=== PATIENT | female | born 1990 | race American Indian/Alaskan Native ===

== ENCOUNTER 2016-05-29 21:11 | Emergency (ER) | payer MEDICAID ==
[2016-05-29 21:31] VITALS: BP 137/87
== END 2016-05-30 04:21 | disposition left against medical advice (07) ==
LOC: ED 21:11
DX: M79.609 Pain in unspecified limb (principal); Z53.21 Procedure and treatment not carried out due to patient leaving prior to being seen by health care provider

== ENCOUNTER 2017-03-06 19:43 | Emergency (ER) | payer MEDICAID ==
[2017-03-06 20:51] LABS: Hematocrit 38.8 % (30.3-42.9); Hemoglobin 13.7 gm/dl (10.1-14.3); Mean Corpuscular HGB Conc 35 % (30-34); Mean Corpuscular Hemoglobin 29 pg (28-32); Mean Corpuscular Volume 81 fl (79-97); Platelet Count 258 K/mm3 (140-440); Red Blood Count 4.81 M/mm3 (3.65-5.03); Red Cell Distribution Width 16.5 % (13.2-15.2); White Blood Count 9.9 K/mm3 (4.5-11.0)
[2017-03-06 21:11] LABS: Anion Gap 17 mmol/L; BUN/Creatinine Ratio 13; Blood Urea Nitrogen 12 mg/dL (7-17); Carbon Dioxide 28 mmol/L (22-30); Chloride 101.7 mmol/L (98-107); Glucose 89 mg/dL (65-100); Potassium 4.3 mmol/L (3.6-5.0); Sodium 142 mmol/L (137-145)
[2017-03-06 23:02] LABS: Bacteria,Urine 1+ /HPF (Negative); Bilirubin,Urine NEG (Negative); Blood,Urine SM (Negative); Ketones,Urine NEG (Negative); Leukocyte Esterase,Urine SM (Negative); Nitrite,Urine NEG (Negative); Protein,Urine <15 mg/dL mg/dL (Negative); Urobilinogen,Urine < 2.0 mg/dL (<2.0)
[2017-03-07] MEDS ORDERED: MOTRIN PO ONE (00:24)
[2017-03-07] MEDS ORDERED: NORVASC PO ONE (00:24)
--- NOTE | 2017-03-07 01:19 | Emergency Department Report ---
ED General Adult HPI - General Chief complaint: High BP Stated complaint: HIGH BLOOD PRESSURE,LEFT FINGER,HAND PAIN Time Seen by Provider: 03/07/17 00:06 Source: patient Mode of arrival: Ambulatory Limitations: No Limitations - History of Present Illness Initial comments: 26-year-old female presents to the ER with complaints of elevated blood pressure and tingling and numbness to her distal left forearm. Patient had a baby in December and states just prior to her delivery her blood pressure was elevated. She denies having a diagnosis of preeclampsia. She was never placed on hypertensive medication and states she monitors her blood pressure intermittently and it has remained high since her delivery. Patient has not followed up with the primary care doctor. Patient complains of intermittent frontal throbbing headaches rated 8/10 in intensity thay have persisted even prior to her diagnosis of hypertension. She denies nausea, vomiting, chest pain , or shortness of breath. Today patient had some numbness and tingling to her distal left forearm extending to her hands that has since resolved. No weakness or paralysis reported. Patient is asymptomatic at this time but she states she feels nervous since her mother worried her about developing renal failure requiring dialysis like her and possibly having diabetes. Severity scale (0 -10): 8 - Related Data Home Medications Medication Instructions Recorded Confirmed Last Taken Valacyclovir HCl [Valtrex] 1,000 mg PO BID 02/15/16 02/15/16 Unknown traMADol [Ultram] 0 mg PO Q6HR PRN 02/15/16 Unknown Previous Rx's Medication Instructions Recorded Last Taken Type Ibuprofen [Motrin] 600 mg PO Q8H PRN #30 tablet 03/07/17 Unknown Rx amLODIPine [Norvasc] 5 mg PO DAILY #30 tab 03/07/17 Unknown Rx traMADol [Ultram 50 MG tab] 50 mg PO Q6HR PRN #20 tablet 03/07/17 Unknown Rx Allergies Allergy/AdvReac Type Severity Reaction Status Date / Time No Known Allergies Allergy Verified 02/15/16 16:52 ED Review of Systems ROS: Stated complaint: HIGH BLOOD PRESSURE,LEFT FINGER,HAND PAIN Other details as noted in HPI Comment: All other systems reviewed and negative Other: Constitutional: No fevers chills Eyes: No eye pain visual changes ENT: No ear pain or throat pain Neck: Denies pain Respiratory: Denies cough wheezing shortness of breath Cardiovascular: Denies chest pain, palpitations, syncope GI: Denies abdominal pain, nausea, vomiting, diarrhea : Denies dysuria, urinary frequency, or urgency Musculoskeletal: Denies back pain Skin: Denies rash, lesions, erythema Neurologic: as per hpi Psychiatric: Denies suicidal ideation, hallucinations ED Past Medical Hx - Past Medical History Additional medical history: Herpes, preeclampsia - Surgical History Past Surgical History?: No - Social History Smoking Status: Never Smoker Substance Use Type: None - Medications Home Medications: Home Medications Medication Instructions Recorded Confirmed Last Taken Type Valacyclovir HCl [Valtrex] 1,000 mg PO BID 02/15/16 02/15/16 Unknown History traMADol [Ultram] 0 mg PO Q6HR PRN 02/15/16 Unknown History Ibuprofen [Motrin] 600 mg PO Q8H PRN #30 tablet 03/07/17 Unknown Rx amLODIPine [Norvasc] 5 mg PO DAILY #30 tab 03/07/17 Unknown Rx traMADol [Ultram 50 MG tab] 50 mg PO Q6HR PRN #20 tablet 03/07/17 Unknown Rx ED Physical Exam - General Limitations: No Limitations - Other Other exam information: General: No limitations, patient is alert in no acute distress Head exam: Atraumatic, normocephalic Eyes exam: Normal appearance, pupils equal reactive to light, extraocular movements intact, peripheral dean grossly intact ENT: Moist mucous membrane, normal oropharynx Neck exam: Normal inspection, full range of motion, no meningismus nontender Respiratory exam: Clear to auscultation bilateral, no wheezes, rales, crackles Cardiovascular: Normal rate and rhythm, normal heart sounds Abdomen: Soft, nondistended, and nontender, with normal bowel sounds, no rebound, or guarding Extremity: Full range of motion normal inspection no deformity Back: Normal Inspection, full range of motion, no tenderness Neurologic: Alert, oriented x3, cranial nerves intact, no motor or sensory deficit, finger-nose function intact, equal sensation and pinprick bilateral upper extremities Psychiatric: normal affect, normal mood Skin: Warm, dry, intact ED Course Vital Signs 03/06/17 03/06/17 03/07/17 19:59 20:14 00:15 Temperature 98.1 F 98.1 F Pulse Rate 82 78 96 H Respiratory 18 18 13 Rate Blood Pressure 166/103 166/103 153/103 O2 Sat by Pulse 99 99 Oximetry 03/07/17 03/07/17 03/07/17 00:18 00:30 00:45 Temperature Pulse Rate 84 84 Respiratory 13 19 15 Rate Blood Pressure 143/95 143/95 O2 Sat by Pulse 100 100 100 Oximetry 03/07/17 03/07/17 01:00 01:05 Temperature Pulse Rate 81 98 H Respiratory 14 Rate Blood Pressure 142/85 149/100 O2 Sat by Pulse 99 Oximetry - Reevaluation(s) Reevaluation #1: 03/07/17 01:19 Patient provided Norvasc 5 mg per hypertension and motion for headache ED Medical Decision Making - Lab Data Result diagrams: 03/06/17 20:40 03/06/17 20:40 Lab Results 03/06/17 03/06/17 03/06/17 Range/Units 20:40 20:40 22:36 WBC 9.9 (4.5-11.0) K/mm3 RBC 4.81 (3.65-5.03) M/mm3 Hgb 13.7 (10.1-14.3) gm/dl Hct 38.8 (30.3-42.9) % MCV 81 (79-97) fl MCH 29 (28-32) pg MCHC 35 H (30-34) % RDW 16.5 H (13.2-15.2) % Plt Count 258 (140-440) K/mm3 Sodium 142 (137-145) mmol/L Potassium 4.3 (3.6-5.0) mmol/L Chloride 101.7 (98-107) mmol/L Carbon Dioxide 28 (22-30) mmol/L Anion Gap 17 mmol/L BUN 12 (7-17) mg/dL Creatinine 0.9 (0.7-1.2) mg/dL Estimated GFR > 60 ml/min BUN/Creatinine Ratio 13 % Glucose 89 (65-100) mg/dL Calcium 9.0 (8.4-10.2) mg/dL Urine Color Yellow (Yellow) Urine Turbidity Clear (Clear) Urine pH 7.0 (5.0-7.0) Ur Specific [place] 1.012 (1.003-1.030) Urine Protein <15 mg/dl (Negative) mg/dL Urine Glucose (UA) Neg (Negative) mg/dL Urine Ketones Neg (Negative) mg/dL Urine Blood Sm (Negative) Urine Nitrite Neg (Negative) Urine Bilirubin Neg (Negative) Urine Urobilinogen < 2.0 (<2.0) mg/dL Ur Leukocyte Esterase Sm (Negative) Urine WBC (Auto) 1.0 (0.0-6.0) /HPF Urine RBC (Auto) 2.0 (0.0-6.0) /HPF U Epithel Cells (Auto) 2.0 (0-13.0) /HPF Urine Bacteria (Auto) 1+ (Negative) /HPF Hyaline Casts 1 /LPF Urine HCG, Qual (Negative) 03/07/17 Range/Units 00:06 WBC (4.5-11.0) K/mm3 RBC (3.65-5.03) M/mm3 Hgb (10.1-14.3) gm/dl Hct (30.3-42.9) % MCV (79-97) fl MCH (28-32) pg MCHC (30-34) % RDW (13.2-15.2) % Plt Count (140-440) K/mm3 Sodium (137-145) mmol/L Potassium (3.6-5.0) mmol/L Chloride (98-107) mmol/L Carbon Dioxide (22-30) mmol/L Anion Gap mmol/L BUN (7-17) mg/dL Creatinine (0.7-1.2) mg/dL Estimated GFR ml/min BUN/Creatinine Ratio % Glucose (65-100) mg/dL Calcium (8.4-10.2) mg/dL Urine Color (Yellow) Urine Turbidity (Clear) Urine pH (5.0-7.0) Ur Specific [place] (1.003-1.030) Urine Protein (Negative) mg/dL Urine Glucose (UA) (Negative) mg/dL Urine Ketones (Negative) mg/dL Urine Blood (Negative) Urine Nitrite (Negative) Urine Bilirubin (Negative) Urine Urobilinogen (<2.0) mg/dL Ur Leukocyte Esterase (Negative) Urine WBC (Auto) (0.0-6.0) /HPF Urine RBC (Auto) (0.0-6.0) /HPF U Epithel Cells (Auto) (0-13.0) /HPF Urine Bacteria (Auto) (Negative) /HPF Hyaline Casts /LPF Urine HCG, Qual Negative (Negative) - Medical Decision Making Patient provided Norvasc and Motrin. No gross neuro deficits in the ED Patient encouraged to follow primary care doctor for further management of ongoing hypertension. - Differential Diagnosis anxiety, hypertensive emergency/urgency, CVA, paresthesias Critical Care Time: No Critical care attestation.: If time is entered above; I have spent that time in minutes in the direct care of this critically ill patient, excluding procedure time. ED Disposition Clinical Impression: HTN (hypertension), Chronic headache Disposition: TO HOME OR SELFCARE Is pt being admited?: No Does the pt Need Aspirin: No Condition: Stable Instructions: Hypertension (ED) Additional Instructions: Take the medication as prescribed. Make sure you follow-up with a primary care doctor for further management of your blood pressure. Prescriptions: amLODIPine [Norvasc] 5 mg PO DAILY #30 tab Ibuprofen [Motrin] 600 mg PO Q8H PRN #30 tablet PRN Reason: Pain traMADol [Ultram 50 MG tab] 50 mg PO Q6HR PRN #20 tablet PRN Reason: Pain Referrals: HILARY ELLIS MD [Primary Care Provider] - 3-5 Days VINOD REAL JR, MD [Staff Physician] - 3-5 Days [facility] [Provider Group] - 3-5 Days Time of Disposition: 01:25
[2017-03-07 01:46] VITALS: BP 139/93
== END 2017-03-07 01:48 | disposition home or self-care (01) ==
LOC: ED 19:43
DX: I10 Essential (primary) hypertension (principal); R51 Headache; G89.29 Other chronic pain
CPT/HCPCS: 36415; 80048; 81001; 81025; 85027

== ENCOUNTER 2017-08-24 11:26 | Emergency (ER) | payer MEDICAID, OTHER ==
[2017-08-24] MEDS ORDERED: TYLENOL PO ONE (13:56)
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
[2017-08-24 14:46] LABS: HCG Qualitative,Urine Negative (Negative)
--- NOTE | 2017-08-24 16:40 | Cat Scan Report ---
FINAL REPORT PROCEDURE: CT head without contrast. TECHNIQUE: Computerized tomography of the head was performed without contrast material. HISTORY: Headache. COMPARISON: No prior studies are available for comparison. FINDINGS: The ventricles are normal in size. The olvera matter and white matter appear normal. There are no mass lesions. There is no intracranial hemorrhage. The calvarium appears intact. The mastoid air cells and visualized paranasal sinuses are clear. IMPRESSION: Normal study.
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
[2017-08-24 16:49] VITALS: BP 138/91
== END 2017-08-24 17:03 | disposition home or self-care (01) ==
LOC: ED 11:26
DX: S00.81XA Abrasion of other part of head, initial encounter (principal); I10 Essential (primary) hypertension; V89.2XXA Person injured in unspecified motor-vehicle accident, traffic, initial encounter; Y93.89 Activity, other specified; Y92.89 Other specified places as the place of occurrence of the external cause; Y99.8 Other external cause status
CPT/HCPCS: 70450; 72125; 81025; 99284

== ENCOUNTER 2020-04-30 18:23 | Emergency (ER) | payer SELFPAY ==
[2020-04-30 18:45] VITALS: BP 149/99
--- NOTE | 2020-04-30 18:54 | Emergency Department Report ---
Burn HPI - History Stated Complaint: CHEMICAL BURN/LFT HAND Chief Complaint: Burn/Smoke Inhalation Time Seen by Provider: 04/30/20 18:44 Symptoms:: Yes Able to Tolerate Fluids, No Blistering, No Malaise, No Myalgias, No Fever, No Vomiting Other History: This is a 29-year-old female presents the emergency department chief complaint of a possible burn to the left hand. 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 She states there was some [id number] initially but this has resolved. She to ok a picture initially on the whole palmar side of her finger was initially white but now is only in the flexor surfaces. She denies any ingestion or inhalation. - Home Meds and Allergies Home Medications: Home Medications Medication Instructions Recorded Confirmed Last Taken Valacyclovir HCl [Valtrex] 1,000 mg PO BID 02/15/16 02/15/16 Unknown traMADoL [Ultram] 0 mg PO Q6HR PRN 02/15/16 Unknown Previous Rx's Medication Instructions Recorded Last Taken Type Ibuprofen [Motrin] 600 mg PO Q8H PRN #30 tablet 03/07/17 Unknown Rx amLODIPine [Norvasc] 5 mg PO DAILY #30 tab 03/07/17 Unknown Rx traMADoL [Ultram 50 MG tab] 50 mg PO Q6HR PRN #20 tablet 03/07/17 Unknown Rx Cyclobenzaprine [Flexeril] 10 mg PO QHS PRN #7 tablet 08/24/17 Unknown Rx Ibuprofen [Motrin] 600 mg PO Q8H PRN #30 tablet 08/24/17 Unknown Rx Allergies/Adverse Reactions: Allergies Allergy/AdvReac Type Severity Reaction Status Date / Time No Known Allergies Allergy Verified 04/30/20 18:42 ED Review of Systems ROS: Stated complaint: CHEMICAL BURN/LFT HAND Other details as noted in HPI Comment: All other systems reviewed and negative Constitutional: denies: chills, fever Eyes: denies: eye pain, eye discharge, vision change ENT: denies: ear pain, throat pain Respiratory: denies: cough, shortness of breath, wheezing Cardiovascular: denies: chest pain, palpitations Endocrine: no symptoms reported Gastrointestinal: denies: abdominal pain, nausea, diarrhea Genitourinary: denies: urgency, dysuria, discharge Musculoskeletal: denies: back pain, joint swelling, arthralgia Skin: as per HPI, change in color. denies: rash, lesions Neurological: denies: headache, weakness, paresthesias Psychiatric: denies: anxiety, depression Hematological/Lymphatic: denies: easy bleeding, easy bruising ED Past Medical Hx - Past Medical History Hx Hypertension: Yes Additional medical history: Herpes. preeclampsia - Social History Smoking Status: Never Smoker Substance Use Type: None - Medications Home Medications: Home Medications Medication Instructions Recorded Confirmed Last Taken Type Valacyclovir HCl [Valtrex] 1,000 mg PO BID 02/15/16 02/15/16 Unknown History traMADoL [Ultram] 0 mg PO Q6HR PRN 02/15/16 Unknown History Ibuprofen [Motrin] 600 mg PO Q8H PRN #30 tablet 03/07/17 Unknown Rx amLODIPine [Norvasc] 5 mg PO DAILY #30 tab 03/07/17 Unknown Rx traMADoL [Ultram 50 MG tab] 50 mg PO Q6HR PRN #20 tablet 03/07/17 Unknown Rx Cyclobenzaprine [Flexeril] 10 mg PO QHS PRN #7 tablet 08/24/17 Unknown Rx Ibuprofen [Motrin] 600 mg PO Q8H PRN #30 tablet 08/24/17 Unknown Rx Exam - Exam General: Vital signs noted. No distress. Alert and acting appropriately. HEENT: Yes Moist Mucous Membranes, No Conjuctival Injection, No Corneal Edema Exam: Yes Normal Heart Sounds, No Respiratory Distress, No Sensory Deficits, No Musculoskeletal Pain Exam: There is mild white chalky appearance to the flexor surface of the DIP and PIP joint of the index finger on the left hand. There is no erythema, edema, normal distal sensation capillary refill. ED Course Vital Signs 04/30/20 18:40 Temperature 98.0 F Pulse Rate 94 H Respiratory 19 Rate Blood Pressure 149/99 O2 Sat by Pulse 96 Oximetry - Reevaluation(s) Reevaluation #1: 04/30/20 18:52 04/30/20 18:53 ED Medical Decision Making - Medical Decision Making I called poison control and spoke with Marcelo who stated that the solution had parasitic acid and a high concentration of hydrogen peroxide. The patient treatment would include cleaning the area with soap and water and standard burn care. The patient symptoms are significantly improving. She showed me a picture from the initial whiteness of her skin that was almost the entire palmar surface and now is only a small area. Recommend that she continue to keep the area clean and dry and follow-up with a primary care doctor. She is agreeable with plan. She verbalized understand the diagnosis, treatment and follow-up instructions. - Differential Diagnosis Chemical burn, contact dermatitis, abrasion Critical care attestation.: If time is entered above; I have spent that time in minutes in the direct care of this critically ill patient, excluding procedure time. ED Disposition Clinical Impression: Chemical burn Disposition: Z- MED SCREENING EXAM-LEFT Is pt being admited?: No Condition: Stable Instructions: Burn Care, Adult, [id number] Referrals: [facility] [Provider Group] - 3-5 Days Time of Disposition: 18:54
== END 2020-04-30 18:59 | disposition left against medical advice (07) ==
LOC: ED 18:23
DX: T23.402A Corrosion of unspecified degree of left hand, unspecified site, initial encounter (principal); Z53.21 Procedure and treatment not carried out due to patient leaving prior to being seen by health care provider; T65.91XA Toxic effect of unspecified substance, accidental (unintentional), initial encounter; Y92.89 Other specified places as the place of occurrence of the external cause

== ENCOUNTER 2020-08-22 10:03 | Emergency (ER) | payer SELFPAY ==
[2020-08-22 10:54] VITALS: BP 148/103
--- NOTE | 2020-08-22 11:02 | Emergency Department Report ---
ED General Adult HPI - General Chief complaint: Extremity Problem,Nontraumatic Stated complaint: THOMAS FEET NUMB/MUSCLE SORENESS/PASS OUT Time Seen by Provider: 08/22/20 10:50 Source: patient Mode of arrival: Ambulatory Limitations: No Limitations - History of Present Illness Initial comments: 29-year-old -[place] female patient presents with complaints of bilateral foot numbness and tingling x2 weeks. She has history of hypertension and states compliance with her medication. She denies any history of diabetes, urinary symptoms, back pain, leg pain/numbness/swelling/weakness, or injury to her feet. Patient states the tingling and numbness mainly occurs upon waking in the morning. She admits to daily heavy alcohol intake. Patient states she has not seen her PCP regarding her symptoms. - Related Data Home Medications Medication Instructions Recorded Confirmed Last Taken Valacyclovir HCl [Valtrex] 1,000 mg PO BID 02/15/16 02/15/16 Unknown traMADoL [Ultram] 0 mg PO Q6HR PRN 02/15/16 Unknown Previous Rx's Medication Instructions Recorded Last Taken Type Ibuprofen [Motrin] 600 mg PO Q8H PRN #30 tablet 03/07/17 Unknown Rx amLODIPine [Norvasc] 5 mg PO DAILY #30 tab 03/07/17 Unknown Rx traMADoL [Ultram 50 MG tab] 50 mg PO Q6HR PRN #20 tablet 03/07/17 Unknown Rx Cyclobenzaprine [Flexeril] 10 mg PO QHS PRN #7 tablet 08/24/17 Unknown Rx Ibuprofen [Motrin] 600 mg PO Q8H PRN #30 tablet 08/24/17 Unknown Rx Allergies Allergy/AdvReac Type Severity Reaction Status Date / Time No Known Allergies Allergy Verified 04/30/20 18:42 ED Review of Systems ROS: Stated complaint: THOMAS FEET NUMB/MUSCLE SORENESS/PASS OUT Other details as noted in HPI Constitutional: denies: chills, fever Genitourinary: as per HPI Neurological: as per HPI. denies: headache, abnormal gait ED Past Medical Hx - Past Medical History Previous Medical History?: Yes Hx Hypertension: Yes Additional medical history: Herpes. preeclampsia - Social History Smoking Status: Never Smoker Substance Use Type: None - Medications Home Medications: Home Medications Medication Instructions Recorded Confirmed Last Taken Type Valacyclovir HCl [Valtrex] 1,000 mg PO BID 02/15/16 02/15/16 Unknown History traMADoL [Ultram] 0 mg PO Q6HR PRN 02/15/16 Unknown History Ibuprofen [Motrin] 600 mg PO Q8H PRN #30 tablet 03/07/17 Unknown Rx amLODIPine [Norvasc] 5 mg PO DAILY #30 tab 03/07/17 Unknown Rx traMADoL [Ultram 50 MG tab] 50 mg PO Q6HR PRN #20 tablet 03/07/17 Unknown Rx Cyclobenzaprine [Flexeril] 10 mg PO QHS PRN #7 tablet 08/24/17 Unknown Rx Ibuprofen [Motrin] 600 mg PO Q8H PRN #30 tablet 08/24/17 Unknown Rx ED Physical Exam - General Limitations: No Limitations General appearance: alert, in no apparent distress - Head Head exam: Present: atraumatic, normocephalic - Eye Eye exam: Present: normal appearance. Absent: scleral icterus - Neck Neck exam: Present: normal inspection - Respiratory Respiratory exam: Present: normal lung sounds bilaterally, respiratory distress - Cardiovascular Cardiovascular Exam: Present: regular rate, normal rhythm - Extremities Exam Extremities exam: Present: other (Bilaterally pedal pulses are normal, capillary refill is normal of the toes, normal sensation of the feet and toes as noted, no skin changes noted, full range of motion of the ankles/toes/foot noted) - Back Exam Back exam: Present: normal inspection, full ROM - Neurological Exam Neurological exam: Present: alert, oriented X3, normal gait - Psychiatric Psychiatric exam: Present: normal affect, normal mood - Skin Skin exam: Present: warm, dry, intact, normal color. Absent: rash, cyanosis, d iaphoretic, erythema, ecchymosis ED Course Vital Signs 08/22/20 10:48 Temperature 98.6 F Pulse Rate 84 Respiratory 13 Rate Blood Pressure 148/103 O2 Sat by Pulse 98 Oximetry ED Medical Decision Making - Medical Decision Making 29-year-old -[place] female patient presents with complaints of bilateral foot numbness and tingling x2 weeks. She has history of hypertension and states compliance with her medication. She denies any history of diabetes, urinary symptoms, back pain, leg pain/numbness/swelling/weakness, or injury to her feet. Patient states the tingling and numbness mainly occurs upon waking in the morning. She admits to daily heavy alcohol intake. Patient states she has not seen her PCP regarding her symptoms. Normal pedal pulse, range of motion, and perfusion/capillary refill of the toes on exam. Patient also has normal sensation to the feet bilaterally and normal ambulation. POC glucose 101. Suspect paresthesias possibly due to chronic alcohol intake and vitamin B-12 deficiency, however recommend patient follows up with her PCP for further evaluation and treatment. She is well-appearing, her vitals are within normal limits, she is stable for discharge home. Strict return precautions discussed in great detail with patient who verbalizes understanding. Critical care attestation.: If time is entered above; I have spent that time in minutes in the direct care of this critically ill patient, excluding procedure time. ED Disposition Clinical Impression: Paresthesia of foot, bilateral Disposition: DC-01 TO HOME OR SELFCARE Is pt being admited?: No Condition: Stable Instructions: Vitamin B12 Deficiency, Peripheral Neuropathy Referrals: PRIMARY CARE, [Primary Care Provider] - 2-3 Days Forms: Work/School Release Form(ED)
== END 2020-08-22 11:32 | disposition home or self-care (01) ==
LOC: ED 10:03
DX: R20.2 Paresthesia of skin (principal); I10 Essential (primary) hypertension; Z79.899 Other long term (current) drug therapy
CPT/HCPCS: 82962; 99282